=== PATIENT | female | born 1970 | race African-American/Black ===

== ENCOUNTER 2021-05-06 08:11 | Emergency (ER) | payer MEDICAID ==
[~2021-05-06] VITALS: Ht 157.5 cm; Wt 85.0 kg
[2021-05-06 08:50] VITALS: BP 167/56
[2021-05-06 09:18] LABS: BASOPHILS % 0.3 % (0.0-2.0); HEMATOCRIT. 40.4 % (36.0-48.0); HEMOGLOBIN. 13.8 g/dL (12.0-16.0); LYMPHOCYTES % 13.2 % (20.0-50.0); MEAN CORPUSCULAR HEMOGLOBIN 29.3 pg (28.0-32.0); MEAN PLATELET VOLUME 7.8 fl (7.4-10.4); MONOCYTES % 6.8 % (2.0-8.0); NEUTROPHILS % 77.7 % (40.0-76.0); PLATELET 160 x1000/uL (130-400); RED BLOOD CELL COUNT 4.69 mill/uL (4.2-5.4); RED CELL DISTRIBUTION WIDTH 13.9 % (11.6-14.6)
[2021-05-06 09:25] LABS: CHLORIDE 107 mEq/L (98-107)
[2021-05-06 09:28] LABS: CLARITY URINE CLEAR (CLEAR); COLOR URINE YELLOW (YELLOW); KETONES URINE NEGATIVE (NEGATIVE); LEUKOCYTE ESTERASE URINE NEGATIVE (NEGATIVE); NITRITE URINE NEGATIVE (NEGATIVE); OCCULT BLOOD URINE NEGATIVE (NEGATIVE); PROTEIN URINE NEGATIVE (NEGATIVE); SPECIFIC GRAVITY URINE 1.021 (1.005-1.030); UROBILINOGEN URINE 0.2 E.U./dL (0.2-1.0)
[2021-05-06] MEDS ORDERED: VALA100044 MT (10:45)
[2021-05-06] MEDS ORDERED: ACETAMINOPHEN 325MG TABLET PO ONE (10:45)
[2021-05-06] MEDS ORDERED: CARB100T4 MT (10:45)
[2021-05-06] MEDS ORDERED: BACI3.5O5 LEFTEYE (11:01)
== END 2021-05-06 11:14 | disposition home or self-care (01) ==
LOC: ER 08:35
DX: G51.0 Bell's palsy (principal); E11.9 Type 2 diabetes mellitus without complications; I10 Essential (primary) hypertension; F12.10 Cannabis abuse, uncomplicated; F17.210 Nicotine dependence, cigarettes, uncomplicated; Z71.6 Tobacco abuse counseling
CPT/HCPCS: 36415; 80053; 81003; 85025; 93005; 99285; 99406